=== PATIENT | female | born 1990 | race Caucasian/White ===

== ENCOUNTER → 2020-11-12 | Outpatient (CLI) | payer OTHER ==
[~2020-11-12] MED LIST: CLINDAMYCIN HC300 MG PO; COLACE 100MG C100 MG PO; NAPROSYN500 MG PO; ZOFRAN4 MG PO
== END ==
LOC: KOH-I 10:09
DX: M54.5 Low back pain (principal); M47.817 Spondylosis without myelopathy or radiculopathy, lumbosacral region; M48.07 Spinal stenosis, lumbosacral region
CPT/HCPCS: 72100

== ENCOUNTER 2021-04-10 20:34 | Emergency (ER) | payer OTHER ==
[2021-04-10 22:16] LABS: HEMOGLOBIN 14.7 gm/dl (12.3-15.3); WHITE BLOOD COUNT 5.6 K/UL (4.5-11.0)
[2021-04-10 22:30] LABS: BUN/CREATININE RATIO 12 (0-10)
[2021-04-11] MEDS ORDERED: LODINE CAP 300300 MG PO (01:06)
[2021-04-11] MEDS ORDERED: VENTOLIN HFA 66.7 GM INH (01:06)
[2021-04-11] MEDS ORDERED: DECADRON6 MG PO (01:06)
[2021-04-11] MEDS ORDERED: ZOFRAN ODT 4 MG4 MG PO (01:06)
== END 2021-04-11 01:08 | disposition home or self-care (01) ==
LOC: ER1 20:34
PROVIDERS: Physician Assistant
DX: U07.1 COVID-19 (principal)
CPT/HCPCS: 71045; 80053; 85025; 99283; U0002

== ENCOUNTER 2021-12-27 05:14 | Emergency (ER) | payer OTHER ==
[~2021-12-27 05:14] MED LIST changes: +DECADRON6 MG PO; +LODINE CAP 300300 MG PO; +VENTOLIN HFA 66.7 GM INH; +ZOFRAN ODT 4 MG4 MG PO
[2021-12-27] MEDS ORDERED: PERCOCET 5/325 T1 EA PO (05:44)
== END 2021-12-27 05:49 | disposition home or self-care (01) ==
LOC: ER1 05:14
DX: K08.89 Other specified disorders of teeth and supporting structures (principal); E11.9 Type 2 diabetes mellitus without complications; Z88.8 Allergy status to other drugs, medicaments and biological substances
CPT/HCPCS: 64400; 99282